=== PATIENT | male | born 1945 | race Caucasian/White ===

== ENCOUNTER → 2017-05-01 | Outpatient (REF) ==
[~2017-05-01] MED LIST: ACCUPRIL 1010 MG/TAB PO; ALDACTONE 25MG25 M1 PO; ALDACTONE25 MG PO; ALLERGY RELIEF10 M1 PO; ALLOPURINOL300 MG PO; ASPI325T6 PO; ASPIR-LOW81 MG PO; ASPIR-LOX AD325 MG PO; ASPIRIN 32325 MG/TA1 PO; ASPIRIN 32325 MG/TAB PO; BACTROBAN 22GM22 GM TP; BIAXIN FILMTAB500 MG PO; CAPOTEN12.5 MG PO; CARDI-OMEGA1000 MG PO; CARDURA XL4 MG; CARDURA XL4 MG PO; CLARITIN REDITA10 MG PO; CLOPIDOGREL; CORDARONE200 MG PO; DOXAZOSIN4 MG PO; EPA FISH OIL1000 MG PO; FLONASE NASAL S16 GM NS; FUROSEMIDE; GOOD SENSE ASP325 M1 PO; K-DUR 2020 MEQ PO; KLOR-CON M2020 MEQ PO; LASIX 40MG TABL40 MG PO; LASIX40 MG PO; LOPRESSOR 550 MG/TAB PO; LORATADINE10 MG PO; LOTRIMIN15 GM TP; MULTIPLE VITAMI1 CAP PO; MUPIROCIN2% TP; NAPROSYN375 MG PO; NITROSTAT0.4 MG SL; NITROSTAT0.4 MG/TAB SL; NO HOME MEDICATIONS; NORCO 325 MG-51 TAB PO; NORCO 325 MG-7.1 TA1 PO; PACERONE200 MG PO; PERCOCET 325 MG1 TA2 PO; PLAVIX 75MG TAB75 MG PO; POTASSIUM CH2 MEQ/ML PO; POTASSIUM CL 220 MEQ PO; SIMVISTATIN; TOPROL XL100 MG PO; TYLENOL PM 5001 CAP PO; TYLENOL PM EXTR1 TA1 PO; ULTRAM 50MG TAB50 MG PO; ZAROXOLYN5 MG PO; ZESTRIL2.5 MG PO; ZITHROMAX 250M250 MG PO; ZOCOR 20MG20 MG PO; ZYLOPRIM 300MG300 MG PO; ZYRTEC5 MG
[2017-05-01 16:15] LABS: CALCIUM 10.6 mg/dL (8.4-10.2); CREATININE, serum 1.13 mg/dL (0.66-1.25); POTASSIUM 3.7 mmol/L (3.4-5.0)
== END ==
LOC: EDBD 15:52 → ZLAB.STJ 15:52
PROVIDERS: Family Medicine
DX: Z01.89 Encounter for other specified special examinations (principal)

== ENCOUNTER → 2017-09-19 | Outpatient (CLI) | payer MEDICARE ==
[~2017-09-19] MED LIST changes: +ALDACTONE50 MG PO; +ALMACONE 360 M360 ML PO; +ASPIRIN 81M81 MG/TA2 PO; +CRANBERRY FRUI425 MG PO; +DEBROX OT; +DEMADEX10 MG PO; +FLOMAX 0.40.4 MG/CAP PO; +GLUCOPHAGE500 MG/TAB PO; +IMODIUM A-D2 MG PO; +K-TAB20 PO; +KRILL OIL 3001 EACH PO; +L-LYSINE500 M1 PO; +MIRALAX PA17 GM/Dose PO; +PHENERGAN25 MG RC; +PROBIOTIC ACID1.5 MG PO; +TYLENOL 325MG325 MG PO; +VITAMIN B122500 MCG PO; +VITAMIND3 5000 PO; +VITAMINE200 PO
== END ==
LOC: ZLAB.STJ 14:50
DX: E11.9 Type 2 diabetes mellitus without complications (principal)

== ENCOUNTER → 2017-10-06 | Outpatient (CLI) | payer MEDICARE ==
[2017-10-06 10:21] LABS: BASO % 0.3 % (0.0-2.0); EOS # 0.6 (0.0-0.7); EOS % 4.7 % (0-4.0); GRAN # 9.2 (1.4-6.5); GRAN % 74.2 % (42.2-75.2); HEMATOCRIT 46.5 % (42.0-52.0); HEMOGLOBIN 15.1 g/dl (13.5-18.0); LYMPH # 1.5 (1.2-3.4); LYMPH % 11.8 % (20.0-51.0); MEAN CELL VOLUME 92 fl (80.0-100.0); MEAN CORPUSCULAR HEMOGLOBIN 30 pg (27.0-31.0); MEAN CORPUSCULAR HGB CONC 33 g/dl (33.0-37.0); MEAN PLATELET VOLUME 11.5 fl (7.4-10.4); MONO # 1.1 (0.1-0.6); MONO % 8.7 % (1.7-9.3); PLATELET COUNT 155 K/mm3 (130-400); RED BLOOD COUNT 5.03 M/mm3 (4.20-5.60); REDCELL DISTRIBUTION WIDTH-CV 15.1 % (11.5-14.5)
[2017-10-06 10:42] LABS: ALBUMIN 4.4 gm/dL (3.5-5.0); BILIRUBIN,TOTAL 0.6 mg/dL (0.0-1.0); CALCIUM 10.9 mg/dL (8.4-10.2); CHOLESTEROL RISK RATIO 5.1; CREATININE, serum 1.09 mg/dL (0.66-1.25); POTASSIUM 4.7 mmol/L (3.4-5.0); TOTAL PROTEIN 7.9 gm/dL (6.4-8.2)
[2017-10-06 11:09] LABS: THYROID STIMULATING HORMONE 2.48 uIU/mL (0.465-4.680)
== END ==
LOC: ZLAB.STJ 10:02
PROVIDERS: Family Medicine
DX: I50.9 Heart failure, unspecified (principal); E11.9 Type 2 diabetes mellitus without complications

== ENCOUNTER 2017-10-21 12:16 | Emergency (ER) | payer MEDICARE ==
[~2017-10-21] VITALS: Ht 188 cm; Wt 143.2 kg
[2017-10-21 12:20] VITALS: BP 100/52; PULSE 77; TEMP 98.6
[2017-10-21] MEDS ORDERED: ULTRAM 50MG TAB50 MG PO (13:37)
== END 2017-10-21 13:50 | disposition home or self-care (01) ==
LOC: COL.ER 12:16
DX: S70.02XA Contusion of left hip, initial encounter (principal); I10 Essential (primary) hypertension; I25.2 Old myocardial infarction; I48.91 Unspecified atrial fibrillation; E11.9 Type 2 diabetes mellitus without complications; E66.9 Obesity, unspecified; E78.5 Hyperlipidemia, unspecified; M10.9 Gout, unspecified; Z79.84 Long term (current) use of oral hypoglycemic drugs; Z79.82 Long term (current) use of aspirin; W18.39XA Other fall on same level, initial encounter; Y92.129 Unspecified place in nursing home as the place of occurrence of the external cause

== ENCOUNTER → 2017-10-31 | Outpatient (REF) | LOC: ZLAB.STJ 14:25 | DX: N18.3 Chronic kidney disease, stage 3 (moderate) (principal); E11.9 Type 2 diabetes mellitus without complications ==

== ENCOUNTER → 2017-10-31 | Outpatient (CLI) | payer MEDICARE | LOC: ZCOL.LAB 14:20 | DX: Z01.89 Encounter for other specified special examinations (principal) ==

== ENCOUNTER → 2017-11-30 | Outpatient (CLI) | payer MEDICARE | LOC: ZLAB.STJ 09:22 | DX: M62.81 Muscle weakness (generalized) (principal) ==

== ENCOUNTER → 2018-04-03 | Outpatient (CLI) | payer MEDICARE | LOC: ZLAB.STJ 09:50 | DX: E11.9 Type 2 diabetes mellitus without complications (principal); I25.10 Atherosclerotic heart disease of native coronary artery without angina pectoris; M1A.00X0 Idiopathic chronic gout, unspecified site, without tophus (tophi) ==

== ENCOUNTER → 2018-04-06 | Outpatient (CLI) | payer MEDICARE ==
[2018-04-06 10:29] LABS: HEMATOCRIT 43.9 % (42.0-52.0); HEMOGLOBIN 14.4 g/dl (13.5-18.0); MEAN CELL VOLUME 90 fl (80.0-100.0); MEAN CORPUSCULAR HEMOGLOBIN 30 pg (27.0-31.0); MEAN CORPUSCULAR HGB CONC 33 g/dl (33.0-37.0); MEAN PLATELET VOLUME 12.6 fl (7.4-10.4); PLATELET COUNT 170 K/mm3 (130-400); RED BLOOD COUNT 4.86 M/mm3 (4.20-5.60); REDCELL DISTRIBUTION WIDTH-CV 14.8 % (11.5-14.5)
[2018-04-06 10:33] LABS: ALBUMIN 3.6 gm/dL (3.5-5.0); BILIRUBIN,TOTAL 0.4 mg/dL (0.0-1.0); CHOLESTEROL RISK RATIO 4.6; CREATININE, serum 1.01 mg/dL (0.66-1.25); TOTAL PROTEIN 6.5 gm/dL (6.4-8.2); URIC ACID 5.9 mg/dL (3.5-8.5)
[2018-04-06 10:39] LABS: POTASSIUM 13.4 mmol/L (3.4-5.0)
== END ==
LOC: ZLAB.STJ 09:50
PROVIDERS: Family Medicine
DX: Z01.89 Encounter for other specified special examinations (principal)

== ENCOUNTER → 2018-12-28 | Outpatient (CLI) | payer MEDICARE ==
[2018-12-28 09:57] LABS: ALBUMIN 3.8 gm/dL (3.5-5.0); BILIRUBIN,TOTAL 0.5 mg/dL (0.0-1.0); CALCIUM 10.5 mg/dL (8.4-10.2); CREATININE, serum 1.18 (0.66-1.25); POTASSIUM 4.3 mmol/L (3.4-5.0); TOTAL PROTEIN 7.4 gm/dL (6.4-8.2)
[2018-12-28 11:30] LABS: BASO # 0.1 (0.0-0.2); BASO % 0.5 % (0.0-2.0); EOS # 0.8 (0.0-0.7); EOS % 6.8 % (0-4.0); GRAN # 7.2 (1.4-6.5); GRAN % 65.5 % (42.2-75.2); HEMATOCRIT 45.8 % (42.0-52.0); HEMOGLOBIN 14.7 g/dl (13.5-18.0); LYMPH % 18.5 % (20.0-51.0); MEAN CELL VOLUME 91 fl (80.0-100.0); MEAN CORPUSCULAR HEMOGLOBIN 29 pg (27.0-31.0); MEAN CORPUSCULAR HGB CONC 32 g/dl (33.0-37.0); MEAN PLATELET VOLUME 12.3 fl (7.4-10.4); MONO # 0.9 (0.1-0.6); MONO % 8.2 % (1.7-9.3); PLATELET COUNT 197 K/mm3 (130-400); RED BLOOD COUNT 5.01 M/mm3 (4.20-5.60); REDCELL DISTRIBUTION WIDTH-CV 15.4 % (11.5-14.5)
[2018-12-28 11:47] LABS: PSA-TOTAL 0.43 ng/mL (0-4)
== END ==
LOC: ZLAB.STJ 09:16
PROVIDERS: Family Medicine
DX: I25.10 Atherosclerotic heart disease of native coronary artery without angina pectoris (principal); N40.1 Benign prostatic hyperplasia with lower urinary tract symptoms; I10 Essential (primary) hypertension
CPT/HCPCS: G0103

== ENCOUNTER → 2019-01-18 | Outpatient (CLI) | payer MEDICARE | LOC: COL.RAD 13:40 | DX: M16.12 Unilateral primary osteoarthritis, left hip (principal); W19.XXXA Unspecified fall, initial encounter ==

== ENCOUNTER → 2019-02-23 | Outpatient (CLI) | payer MEDICARE | LOC: ZLAB.STJ 13:55 | DX: E11.9 Type 2 diabetes mellitus without complications (principal); I25.10 Atherosclerotic heart disease of native coronary artery without angina pectoris; M62.81 Muscle weakness (generalized) ==

== ENCOUNTER → 2019-03-05 | Outpatient (CLI) | payer MEDICARE | LOC: ZLAB.STJ 09:09 | DX: M62.81 Muscle weakness (generalized) (principal) ==

== ENCOUNTER → 2019-03-07 | Outpatient (CLI) | payer MEDICARE | LOC: ZCOL.LAB 16:11 → ZLAB.STJ 16:11 | DX: E11.29 Type 2 diabetes mellitus with other diabetic kidney complication (principal) ==

== ENCOUNTER → 2019-04-16 | Outpatient (CLI) | payer MEDICARE | LOC: ZLAB.STJ 15:14 | DX: M1A.00X0 Idiopathic chronic gout, unspecified site, without tophus (tophi) (principal) ==

== ENCOUNTER → 2019-08-09 | Outpatient (CLI) | payer MEDICARE ==
[~2019-08-09] MED LIST changes: +B-121000 MCG PO; +DESYREL 50MG50 MG PO; +QUALITY CHOICE80 MG PO; -VITAMIN B122500 MCG PO; +WELLBUTRIN XL150 MG PO
[2019-08-09 17:35] LABS: COLLECTION METHOD CLEAN CATCH
[2019-08-09 18:07] LABS: SQUAMOUS EPITHELIAL 0-2 /hpf; URINE BACTERIA None Seen /hpf
[2019-08-09 18:22] LABS: PH 5 (5-8); URINE APPEARANCE Clear; URINE BILIRUBIN Negative (NEGATIVE); URINE BLOOD 1+ (NEGATIVE); URINE COLOR Yellow; URINE GLUCOSE Negative (NEGATIVE); URINE KETONE Negative (NEGATIVE); URINE LEUKOCYTE ESTERASE Trace (NEGATIVE); URINE NITRATE Negative (NEGATIVE); URINE PROTEIN(semi-quant) Negative (NEGATIVE); URINE UROBILINOGEN Negative (NEGATIVE)
== END ==
LOC: ZCOL.LAB 15:27 → ZLAB.STJ 15:27
PROVIDERS: Family Medicine
DX: N39.0 Urinary tract infection, site not specified (principal)

== ENCOUNTER 2019-08-14 01:05 | Inpatient (IN) | payer MEDICARE ==
[~2019-08-14] VITALS: Ht 182.9 cm; Wt 157.0 kg
[~2019-08-14 01:05] MED LIST changes: -DESYREL 50MG50 MG PO; -QUALITY CHOICE80 MG PO; -WELLBUTRIN XL150 MG PO
[2019-08-14 01:27] LABS: BASO % 0.2 % (0.0-2.0); EOS # 0.2 (0.0-0.7); EOS % 1.2 % (0-4.0); GRAN # 13.8 (1.4-6.5); HEMATOCRIT 40.5 % (42.0-52.0); HEMOGLOBIN 13.1 g/dl (13.5-18.0); LYMPH # 1.2 (1.2-3.4); LYMPH % 7.5 % (20.0-51.0); MEAN CELL VOLUME 93 fl (80.0-100.0); MEAN CORPUSCULAR HEMOGLOBIN 30 pg (27.0-31.0); MEAN CORPUSCULAR HGB CONC 32 g/dl (33.0-37.0); MEAN PLATELET VOLUME 10.6 fl (7.4-10.4); MONO # 1.1 (0.1-0.6); MONO % 6.6 % (1.7-9.3); PLATELET COUNT 223 K/mm3 (130-400); RED BLOOD COUNT 4.36 M/mm3 (4.20-5.60); REDCELL DISTRIBUTION WIDTH-CV 14.7 % (11.5-14.5)
[2019-08-14 01:42] LABS: ALANINE AMINOTRANSFERASE 20 U/L (21-72); ALBUMIN 3.6 gm/dL (3.5-5.0); ALKALINE PHOSPHATASE 81 U/L (50-136); ANION GAP 10 mmol/L (7-16); AST,SGOT 16 U/L (15-37); BILIRUBIN,TOTAL 0.3 mg/dL (0.0-1.0); BLOOD UREA NITROGEN 25 mg/dL (9-20); C-REACTIVE PROTEIN 5.7 mg/dL (0.0-0.9); CALCIUM 10.7 mg/dL (8.4-10.2); CARBON DIOXIDE 27 mmol/L (22-30); CHLORIDE 99 mmol/L (98-107); CREATININE, serum 1.43 (0.66-1.25); GLUCOSE 212 mg/dL (74-106); LIPASE 68 U/L (23-300); POTASSIUM 4.4 mmol/L (3.4-5.0); SODIUM 136 mmol/L (137-145); TOTAL PROTEIN 7.2 gm/dL (6.4-8.2)
[2019-08-14 01:52] LABS: TROPONIN-I < 0.012 ng/mL (0.000-0.035)
[2019-08-14 02:26] LABS: COLLECTION METHOD CATHETER
[2019-08-14 02:34] LABS: PH 6 (5-8); SQUAMOUS EPITHELIAL 0-2 /hpf; URINE APPEARANCE Cloudy; URINE BACTERIA Rare /hpf; URINE BILIRUBIN Negative (NEGATIVE); URINE BLOOD 2+ (NEGATIVE); URINE COLOR Yellow; URINE GLUCOSE Negative (NEGATIVE); URINE KETONE Negative (NEGATIVE); URINE LEUKOCYTE ESTERASE 3+ (NEGATIVE); URINE NITRATE Negative (NEGATIVE); URINE PROTEIN(semi-quant) 1+ (NEGATIVE); URINE RBC 20-50 /hpf; URINE UROBILINOGEN Negative (NEGATIVE)
--- NOTE | 2019-08-14 04:00 | NUR ---
Pt arrived to room 312, transferred per stretcher by ED staff. Pt awake, alert, oriented to person/place, cooperative c cares. Pt denies pain or other c/o at this time. INT patent. Pt oriented to room, unit policies et current POC. Questions invited et answered, pt verbalizes understanding. No needs at this time. Call light in reach, will continue c admit process.
[2019-08-14 04:01] VITALS: BP 131/51; PULSE 80; TEMP 98.6
[2019-08-14] MEDS ORDERED: QUALITY CHOICE80 MG PO (05:19)
[2019-08-14] MEDS ORDERED: WELLBUTRIN XL150 MG PO (05:20)
[2019-08-14] MEDS ORDERED: DESYREL 50MG50 MG PO (05:23)
[2019-08-14 11:36] VITALS: BP 139/52; PULSE 94; TEMP 99
--- NOTE | 2019-08-14 15:01 | NUR ---
Potato Peeler attended clinical rounds with the team. PT/OT/Speech to be ordered. SW will continue to follow.
--- NOTE | 2019-08-14 15:02 | NUR ---
Zoo Caretaker met with patient to complete initial intake and discuss discharge planning. Patient is a limited historian, however did state that he lives at [facility]. SW contacted Reymundo at [facility] and left a message. SW contacted patient [facility]-, Miguel (ph#[phone]) who confirmed patient lives at [facility]. Miguel could not remember name of patient primary care physician. ADAM reviewed patient choice form with Miguel and obtained verbal consent over the phone. ADAM placed form in patient chart. ADAM faxed referral to [facility]. SW to continue to follow.
[2019-08-14 16:12] VITALS: BP 113/92; PULSE 86; TEMP 98.8
--- NOTE | 2019-08-14 18:31 | NUR ---
PT HAD UNEVENTFUL DAY. HAS BEEN ALERT AND ORIENTED X2. HAS BEEN RESTLESS, ABLE TO STAND AND WALK TO BATHROOM THEN LATER WILL SIT UP AND REFUSE TO STAND AND LAYS BACK DOWN AND DOES THIS OVER AN OVER. REFUSES TO USE URINAL OR COMMODE.
[2019-08-14 19:22] VITALS: BP 134/49; PULSE 87; TEMP 98.9
[2019-08-14 23:58] VITALS: BP 148/51; PULSE 98
[2019-08-15] VITALS (8 sets, daily range): BP systolic 142–164; BP diastolic 56–74; PULSE 81–97; TEMP 97.9–98.7
--- NOTE | 2019-08-15 08:30 | NUR ---
Assessment complete. Pt sleeps, responds to tactile stimuli, does not awaken. Physical assessment unremarkable. IVF's infusing per orders, no s/s of complications. Call light in reach. Alarm in place and on.
--- NOTE | 2019-08-15 11:09 | NUR ---
Pt briefly up to void in the urinal with assist, slight hesitation to start the stream then voids without c/o pain during void. Pt quickly back to sleep. Not awake enough to take medications at this time.
[2019-08-15 14:30] LABS: BASO % 0.3 % (0.0-2.0); EOS # 0.2 (0.0-0.7); EOS % 1.6 % (0-4.0); GRAN # 7.2 (1.4-6.5); GRAN % 71.8 % (42.2-75.2); HEMOGLOBIN 13.6 g/dl (13.5-18.0); LYMPH # 1.4 (1.2-3.4); LYMPH % 13.7 % (20.0-51.0); MEAN CELL VOLUME 94 fl (80.0-100.0); MEAN CORPUSCULAR HEMOGLOBIN 30 pg (27.0-31.0); MEAN CORPUSCULAR HGB CONC 32 g/dl (33.0-37.0); MEAN PLATELET VOLUME 10.4 fl (7.4-10.4); MONO # 1.2 (0.1-0.6); MONO % 12.3 % (1.7-9.3); PLATELET COUNT 189 K/mm3 (130-400); RED BLOOD COUNT 4.59 M/mm3 (4.20-5.60); REDCELL DISTRIBUTION WIDTH-CV 14.8 % (11.5-14.5)
--- NOTE | 2019-08-15 14:35 | NUR ---
SW faxed updates to [facility]. library services assistant will continue to follow.
[2019-08-15 14:47] LABS: CALCIUM 10.4 mg/dL (8.4-10.2); CREATININE, serum 1.26 (0.66-1.25); POTASSIUM 3.9 mmol/L (3.4-5.0)
--- NOTE | 2019-08-15 15:46 | NUR ---
Spoke with DPOA-HC Miguel Gilbert @ [phone] for palliative care consult as pt is sleeping and no family is in the room. 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 His weight has gotten to over 400# before but when he was on a low carb diet with vegetables for snack, he was able to get his weight down to 278# and it also improved his mental status. Family requests that he be on a low carb diet, which he is and that his snacks be vegetables. They also requested that he be put on probiotics while on antibiotics. The three brothers that are DPOA-HC decisions will talk among themselves and will try to talk with Aayush about code status. They do recognize that his size will make a code's success difficult and will let us know what their decision on this is. I did notify Subha BARBA of this conversation and what was discussed. See palliative care consult.
--- NOTE | 2019-08-15 18:20 | NUR ---
Pt sitting up in bed eating supper, reports feeling "pretty good after a long nap." Pt has been very drowsy most of the shift until now. No further needs reported. Call light in reach.
[2019-08-16 03:39] VITALS: BP 162/69; PULSE 105; TEMP 98.4
--- NOTE | 2019-08-16 04:12 | NUR ---
PATIENT REQUESTING TO GO TO THE BATHROOM EVERY 5-10 MINUETS REPORTING THAT HE FEEL LIKE HE HAS TO GO. SMALL AMOUNT OF URINATION EACH TIME. BLADDER SCANNED AFTER UP TO BEDSIDE COMMODE WITH 600MML RESIDUAL. CALL TO ORDERS RECEIVED FOR EID CATHETER INSERT AND PYRIDIUM X 1 DOSE NOW. EID CATHETER INSERT IN STERILE FASHION WITH 550ML OF DARK YELLOW URINE OBTAINED ON FIRST ATTEMPT. PATIENT TOLERATED PROCEDURE WELL. SECUREMENT DEVICE USED. TUBING AND BAG TO DEPENDENT DRAINAGE OFF FLOOR AND BELOW BLADDER.
[2019-08-16 05:27] LABS: BASO % 0.1 % (0.0-2.0); EOS # 0.2 (0.0-0.7); EOS % 2.3 % (0-4.0); GRAN # 6.7 (1.4-6.5); GRAN % 74.9 % (42.2-75.2); HEMATOCRIT 43.3 % (42.0-52.0); HEMOGLOBIN 14.1 g/dl (13.5-18.0); LYMPH # 1.1 (1.2-3.4); LYMPH % 12.6 % (20.0-51.0); MEAN CELL VOLUME 91 fl (80.0-100.0); MEAN CORPUSCULAR HEMOGLOBIN 30 pg (27.0-31.0); MEAN CORPUSCULAR HGB CONC 33 g/dl (33.0-37.0); MEAN PLATELET VOLUME 10.1 fl (7.4-10.4); MONO # 0.8 (0.1-0.6); MONO % 9.5 % (1.7-9.3); PLATELET COUNT 176 K/mm3 (130-400); RED BLOOD COUNT 4.76 M/mm3 (4.20-5.60); REDCELL DISTRIBUTION WIDTH-CV 14.6 % (11.5-14.5)
[2019-08-16 05:37] LABS: CALCIUM 10.1 mg/dL (8.4-10.2); CREATININE, serum 1.29 (0.66-1.25)
--- NOTE | 2019-08-16 08:30 | NUR ---
Assessment complete. Pt sitting up in bed, ready for breakfast, alert and oriented to person. Pt denies pain at this time. Audible expiratory wheeze noted. Saline lock IV to right forearm without s/s of complications. Gilmore to DD without kinks, clear, orange urine. No further needs reported. Call light in reach. Bed alarm pad in place.
[2019-08-16 10:00] VITALS: BP 146/74; PULSE 91; TEMP 98.2
[2019-08-16 13:30] VITALS: BP 144/65; PULSE 98; TEMP 98.1
--- NOTE | 2019-08-16 15:02 | NUR ---
Broom Builder spoke with Leslie at [facility] and faxed updates. SW to continue to follow.
[2019-08-16 17:02] VITALS: BP 154/68; PULSE 92; TEMP 98.2
--- NOTE | 2019-08-16 18:50 | NUR ---
Report with MILLICENT Coker. Pt has voided x 1 s/p removal of Gilmore catheter.
[2019-08-16 19:19] VITALS: BP 130/66; PULSE 96; TEMP 98.4
[2019-08-16 22:37] VITALS: BP 136/74; PULSE 80; TEMP 98.3
[2019-08-17 02:45] VITALS: BP 121/57; PULSE 77; TEMP 98
[2019-08-17 03:45] VITALS: BP 120/67; PULSE 78
[2019-08-17 07:25] LABS: BASO % 0.2 % (0.0-2.0); EOS # 0.4 (0.0-0.7); EOS % 4.5 % (0-4.0); GRAN # 6.7 (1.4-6.5); GRAN % 70.8 % (42.2-75.2); HEMATOCRIT 41.4 % (42.0-52.0); HEMOGLOBIN 13.2 g/dl (13.5-18.0); LYMPH # 1.5 (1.2-3.4); LYMPH % 16.1 % (20.0-51.0); MEAN CELL VOLUME 93 fl (80.0-100.0); MEAN CORPUSCULAR HEMOGLOBIN 30 pg (27.0-31.0); MEAN CORPUSCULAR HGB CONC 32 g/dl (33.0-37.0); MEAN PLATELET VOLUME 10.8 fl (7.4-10.4); MONO # 0.8 (0.1-0.6); PLATELET COUNT 239 K/mm3 (130-400); RED BLOOD COUNT 4.46 M/mm3 (4.20-5.60); REDCELL DISTRIBUTION WIDTH-CV 14.6 % (11.5-14.5)
[2019-08-17 07:58] LABS: CALCIUM 10.6 mg/dL (8.4-10.2); CREATININE, serum 1.19 (0.66-1.25); POTASSIUM 4.1 mmol/L (3.4-5.0)
--- NOTE | 2019-08-17 07:58 | NUR ---
Patient is awake and alert in bed. Is plesant, alert and oriented to self. Does state he would like to shower so he can get dressed and "hit the road." Was heard earlier to be yelling out wanting supper. His respirations are even and nonlabored. Call light and personal items are within reach.
[2019-08-17 08:40] VITALS: BP 144/66; PULSE 83; TEMP 98.1
[2019-08-17] MEDS ORDERED: CEPHALEXIN500 M1 PO (09:33)
--- NOTE | 2019-08-17 13:47 | NUR ---
Bank President was notified patient ready to discharge today. ADAM coordinated with patient RN, Loren and Reymundo at [facility] to set up transportation for 1:00pm. ADAM faxed discharge orders to [facility]. ADAM contacted patient's DPOA-HC Miguel to notify of discharge today to [facility]. Miguel is in agreeance. No additional concerns at this time.
--- NOTE | 2019-08-17 17:06 | NUR ---
Patient discharged home to [facility] at 1315. residential staff here to transport patient. He was minimally assisted with dressing and standby assist to wheelchair. Personal belongings sent with patient along with discharge packet.
[2019-08-17 23:51] LABS: PTH,INTACT 128.6 pg/mL (6.6-88.9)
== END 2019-08-17 13:15 | DRG 872 ==
LOC: COL.ER 01:05 → MEDICAL 02:48
PROVIDERS: Emergency Medicine; Nurse Practitioner Family; Physician Assistant; ADMIT Student in an Organized Health Care Education/Training Program
DX: A41.9 Sepsis, unspecified organism (principal); N39.0 Urinary tract infection, site not specified; I25.10 Atherosclerotic heart disease of native coronary artery without angina pectoris; I48.91 Unspecified atrial fibrillation; J44.9 Chronic obstructive pulmonary disease, unspecified; N40.0 Benign prostatic hyperplasia without lower urinary tract symptoms; F03.90 Unspecified dementia, unspecified severity, without behavioral disturbance, psychotic disturbance, mood disturbance, and anxiety; M10.9 Gout, unspecified; E11.65 Type 2 diabetes mellitus with hyperglycemia; N28.1 Cyst of kidney, acquired; E86.0 Dehydration; I25.2 Old myocardial infarction; Z90.89 Acquired absence of other organs; Z87.01 Personal history of pneumonia (recurrent); Z79.84 Long term (current) use of oral hypoglycemic drugs; Z79.82 Long term (current) use of aspirin; Z87.891 Personal history of nicotine dependence; Z68.38 Body mass index [BMI] 38.0-38.9, adult
CPT/HCPCS: 99222-AI; 99231-AI; 99232-AI; 99239; A4216; J0696; J1644; J1815; J7030

== ENCOUNTER → 2019-08-26 | Outpatient (CLI) | payer MEDICARE ==
[~2019-08-26] MED LIST changes: +CEPHALEXIN500 M1 PO; +DESYREL 50MG50 MG PO; +QUALITY CHOICE80 MG PO; +WELLBUTRIN XL150 MG PO
[2019-08-26 11:17] LABS: COLLECTION METHOD CLEAN CATCH
[2019-08-26 11:32] LABS: PH 6 (5-8); SQUAMOUS EPITHELIAL 0-2 /hpf; URINE APPEARANCE Clear; URINE BACTERIA None Seen /hpf; URINE BILIRUBIN Negative (NEGATIVE); URINE BLOOD Negative (NEGATIVE); URINE COLOR Straw; URINE GLUCOSE Negative (NEGATIVE); URINE KETONE Negative (NEGATIVE); URINE LEUKOCYTE ESTERASE Negative (NEGATIVE); URINE NITRATE Negative (NEGATIVE); URINE PROTEIN(semi-quant) Negative (NEGATIVE); URINE RBC 0-2 /hpf; URINE UROBILINOGEN Negative (NEGATIVE)
== END ==
LOC: ZCOL.LAB 10:40
PROVIDERS: Family Medicine
DX: N39.0 Urinary tract infection, site not specified (principal)

== ENCOUNTER → 2019-09-21 | Outpatient (CLI) | payer MEDICARE ==
[2019-09-21 17:25] LABS: COLLECTION METHOD CLEAN CATCH
[2019-09-21 17:51] LABS: PH 5 (5-8); SQUAMOUS EPITHELIAL 0-2 /hpf; URINE APPEARANCE Clear; URINE BACTERIA Rare /hpf; URINE BILIRUBIN Negative (NEGATIVE); URINE BLOOD Negative (NEGATIVE); URINE COLOR Straw; URINE GLUCOSE Negative (NEGATIVE); URINE KETONE Negative (NEGATIVE); URINE LEUKOCYTE ESTERASE Negative (NEGATIVE); URINE NITRATE Negative (NEGATIVE); URINE PROTEIN(semi-quant) Negative (NEGATIVE); URINE RBC None Seen /hpf; URINE UROBILINOGEN Negative (NEGATIVE); URINE WBC 0-2 /hpf
== END ==
LOC: ZCOL.LAB 15:15
PROVIDERS: Family Medicine
DX: N39.0 Urinary tract infection, site not specified (principal)

== ENCOUNTER → 2019-12-06 | Outpatient (CLI) | payer MEDICARE ==
[2019-12-06 11:29] LABS: CALCIUM 10.2 mg/dL (8.4-10.2); CREATININE, serum 1.1 (0.66-1.25); POTASSIUM 3.9 mmol/L (3.4-5.0)
== END ==
LOC: ZLAB.STJ 08:54
PROVIDERS: Family Medicine
DX: Z01.89 Encounter for other specified special examinations (principal)

== ENCOUNTER 2019-12-15 16:38 | Emergency (ER) | payer MEDICARE ==
[~2019-12-15] VITALS: Ht 185.4 cm; Wt 170.0 kg
[2019-12-15 18:48] VITALS: PULSE 78
== END 2019-12-15 18:48 | disposition home or self-care (01) ==
LOC: COL.ER 16:38
DX: S70.02XA Contusion of left hip, initial encounter (principal); I10 Essential (primary) hypertension; I48.91 Unspecified atrial fibrillation; I25.10 Atherosclerotic heart disease of native coronary artery without angina pectoris; E11.9 Type 2 diabetes mellitus without complications; W06.XXXA Fall from bed, initial encounter
CPT/HCPCS: J2405; J3010

== ENCOUNTER → 2020-01-04 | Outpatient (CLI) | payer MEDICARE ==
[2020-01-04 12:29] LABS: COLLECTION METHOD CLEAN CATCH
[2020-01-04 12:38] LABS: PH 7 (5-8); SQUAMOUS EPITHELIAL 0-2 /hpf; URINE APPEARANCE Clear; URINE BACTERIA Rare /hpf; URINE BILIRUBIN Negative (NEGATIVE); URINE BLOOD Negative (NEGATIVE); URINE COLOR Straw; URINE GLUCOSE Negative (NEGATIVE); URINE KETONE Negative (NEGATIVE); URINE LEUKOCYTE ESTERASE 1+ (NEGATIVE); URINE NITRATE Negative (NEGATIVE); URINE PROTEIN(semi-quant) Negative (NEGATIVE); URINE RBC 0-2 /hpf; URINE UROBILINOGEN Negative (NEGATIVE)
== END ==
LOC: ZLAB.STJ 10:42
PROVIDERS: Family Medicine
DX: N39.0 Urinary tract infection, site not specified (principal)

== ENCOUNTER 2020-05-06 03:51 | Observation (INO) | payer MEDICARE ==
[2020-05-06] VITALS (11 sets, daily range): BP systolic 103–165; BP diastolic 50–67; PULSE 66–90; TEMP 97.2–98.6
[~2020-05-06] VITALS: Ht 185.4 cm; Wt 167.3 kg
[2020-05-06 04:12] LABS: BASO % 0.3 % (0.0-2.0); EOS # 0.6 (0.0-0.7); EOS % 6.1 % (0-4.0); GRAN # 6.5 (1.4-6.5); HEMOGLOBIN 15.2 g/dl (13.5-18.0); LYMPH # 2.4 (1.2-3.4); LYMPH % 22.9 % (20.0-51.0); MEAN CELL VOLUME 89 fl (80.0-100.0); MEAN CORPUSCULAR HEMOGLOBIN 28 pg (27.0-31.0); MEAN CORPUSCULAR HGB CONC 32 g/dl (33.0-37.0); MEAN PLATELET VOLUME 10.3 fl (7.4-10.4); MONO # 0.9 (0.1-0.6); MONO % 8.4 % (1.7-9.3); PLATELET COUNT 175 K/mm3 (130-400); RED BLOOD COUNT 5.37 M/mm3 (4.20-5.60); REDCELL DISTRIBUTION WIDTH-CV 15.4 % (11.5-14.5)
[2020-05-06 04:18] LABS: INR 1.1 (0.8-3.0); PROTHROMBIN TIME 12.3 SECONDS (9.7-12.8)
[2020-05-06 04:22] LABS: ALANINE AMINOTRANSFERASE 23 U/L (4-49); ALKALINE PHOSPHATASE 102 U/L (50-136); ANION GAP 8 mmol/L (7-16); AST,SGOT 21 U/L (15-37); BILIRUBIN,TOTAL 0.6 mg/dL (0.0-1.0); BLOOD UREA NITROGEN 17 mg/dL (9-20); CALCIUM 10.6 mg/dL (8.4-10.2); CARBON DIOXIDE 28 mmol/L (22-30); CHLORIDE 102 mmol/L (98-107); CREATININE, serum 0.95 (0.66-1.25); GLUCOSE 134 mg/dL (74-106); LIPASE 206 U/L (23-300); POTASSIUM 4.2 mmol/L (3.4-5.0); SODIUM 138 mmol/L (137-145); TOTAL PROTEIN 7.7 gm/dL (6.4-8.2)
[2020-05-06] MEDS ORDERED: ULTRAM 50MG TAB50 MG PO (04:31)
[2020-05-06] MEDS ORDERED: SENNA-LAX8.6 MG PO (04:32)
[2020-05-06 04:45] LABS: TROPONIN-I < 0.012 ng/mL (0.000-0.035)
[2020-05-06] MEDS ORDERED: NYSTATIN POWDER30 GM TOP (06:08)
[2020-05-06] MEDS ORDERED: [UNRECOGNIZED DRUG - OTHER] PO (06:08)
--- NOTE | 2020-05-06 06:34 | NUR ---
Pt received from [facility] around 604, med rec and allergy review are completed. Pt seems confused, 3+ bilateral lower edema, pt complaining of chest pain 4/10, pt states that it's better than what he had earlier morning. Helped to go to restroom and settled back to bed, call light on reach. Handover would be given to day shift nurse to complete further admission procedure. No further needs at this time.
[2020-05-06 07:22] LABS: CHOLESTEROL 192 mg/dL (120-200); HDL CHOLESTEROL 38 mg/dL; LDL CHOLESTEROL 123 mg/dL; MAGNESIUM 1.5 mg/dL (1.6-2.3); TRIGLYCERIDE 155 mg/dL
[2020-05-06 07:32] LABS: TROPONIN-I 3 HR POST INITIAL < 0.012 ng/mL (0.000-0.034)
--- NOTE | 2020-05-06 08:00 | NUR ---
PATIENT IS RESTING IN BED, HAS BEEN YELLING OUT ABOUT HAVING BREAKFAST MULTIPLE TIMES. DID ATTEMPT TO EXPLAIN TO PATIENT THAT HE COULD NOT EAT UNTIL HE HAD A HEART TEST DONE, HE WANTED TO KNOW WHEN AND SEE THE DOCTOR BECAUSE HE WAS HUNGRY. HE CONTINUES TO YELL OUT FOR FOOD.
--- NOTE | 2020-05-06 09:41 | NUR ---
Initial visit attempt; Nurse informed Monument Setter that patient was nearly deaf. Monument Setter left card for her to give to patient and will return if patient would like prayer.
--- NOTE | 2020-05-06 15:06 | NUR ---
The patient has a history of dementia. The patient's DPOA-HC is in EMR. It designates Miguel Olson (ph#[phone]). The first alternate is Laz Olson (ph#[phone]). The second alternate is Horace Olson (ph#[phone]). ADAM attempted to contact Miguel. ADAM left him a voicemail. ADAM then contacted Laz to complete intake. The patient resides at [facility]. The patient's PCP is Dr. Cain Joyner. Laz reports that the patient is his, Horace's, and Miguel's [id number]. Laz reports that the plan is for the patient to return back to [facility] upon discharge. ADAM contacted and faxed updates to Reymundo at [facility]. Reymundo reports that they would require a COVID test. ADAM notified the PA. ADAM to continue to follow.
--- NOTE | 2020-05-06 19:40 | NUR ---
PATIENT HAS NOT WORN TELEMETRY UNIT MOST OF THE DAY. HE SAYS IT PULLS HIS CHEST HAIR OUT. DID TRY TO EXPLAIN TO PATIENT THE PURPOSE AND HE SAID HE DIDNT CARE. DID NOTIFY DR. MCARTHUR OF THIS AND SHE SAID TO KEEP IT IN THE ROOM AND CONTINUE TO TRY. WHEN HE SEES THE BOX HE IMMEDIATELY SAYS "NO." HE ALSO PULLED IV OUT OF LEFT AC, THIS WAS REPLACED.
--- NOTE | 2020-05-06 22:13 | NUR ---
Pt assessment completed and documented. Pt resting in bed watching television. Pt alert and oriented x3. IV to right hand CDI. Denies pain. Pt on telemetry. Pt denies any other needs at this time. Call light within reach. Will continue to monitor
[2020-05-07] VITALS (11 sets, daily range): BP systolic 119–153; BP diastolic 57–77; PULSE 60–74; TEMP 96.9–98
--- NOTE | 2020-05-07 05:27 | NUR ---
Pt had uneventful shift. Pt states he was able to sleep until about 0330. Pt has been awake since then watching tv. IVF infusing per orders to right hand IV. Telemetry on throughout the night. Pt states he is "eager to get out of here so he can see his ". Pt denies any other needs at this time. Bed alarm on. Call light within reach. Will continue to monitor.
[2020-05-07 06:48] LABS: INR 1.1 (0.8-3.0); PROTHROMBIN TIME 12.1 SECONDS (9.7-12.8)
[2020-05-07 06:50] LABS: PARTIAL THROMBOPLASTIN TIME 35.3 SECONDS (26.0-37.0)
[2020-05-07 06:51] LABS: BASO % 0.2 % (0.0-2.0); EOS # 0.6 (0.0-0.7); EOS % 7.2 % (0-4.0); GRAN # 5.2 (1.4-6.5); HEMATOCRIT 43.5 % (42.0-52.0); HEMOGLOBIN 13.8 g/dl (13.5-18.0); LYMPH # 1.7 (1.2-3.4); LYMPH % 20.6 % (20.0-51.0); MEAN CELL VOLUME 90 fl (80.0-100.0); MEAN CORPUSCULAR HEMOGLOBIN 29 pg (27.0-31.0); MEAN CORPUSCULAR HGB CONC 32 g/dl (33.0-37.0); MEAN PLATELET VOLUME 11.1 fl (7.4-10.4); MONO # 0.7 (0.1-0.6); MONO % 8.8 % (1.7-9.3); PLATELET COUNT 163 K/mm3 (130-400); RED BLOOD COUNT 4.83 M/mm3 (4.20-5.60); REDCELL DISTRIBUTION WIDTH-CV 15.4 % (11.5-14.5)
[2020-05-07 06:52] LABS: CALCIUM 9.6 mg/dL (8.4-10.2); CREATININE, serum 1.01 (0.66-1.25); POTASSIUM 3.8 mmol/L (3.4-5.0)
--- NOTE | 2020-05-07 06:52 | NUR ---
Report given to MILLICENT Pimentel
--- NOTE | 2020-05-07 11:41 | NUR ---
SEE KALI FOR ALL MEDICATION ADMINISTRATION TIMES AND INTRA AND POST SEDATION ASSESSMENTS.ETCO2 NOT READING A NUMBER PATIENT IS MOUTH BREATHING
--- NOTE | 2020-05-07 12:05 | NUR ---
PATIENT IS CURRENTLY DOWN AT HEART CATH PROCEDURE.
[2020-05-07] MEDS ORDERED: LIPITOR 40MG TA40 MG PO (15:00)
--- NOTE | 2020-05-07 16:38 | NUR ---
Emt Dispatcher collaborated with Hospitalist and patient ready to be discharged. Patient had rapid swab that came back negative. ADAM collaborated with Reymundo at [facility] and set transport time for 1700. ADAM faxed discharge orders and medications. ADAM notified patient and patient's DPOA-Laz of transport time. No additional needs at this time.
[2020-05-07] MEDS ORDERED: ULTRAM 50MG TAB50 MG PO (16:39)
--- NOTE | 2020-05-07 16:51 | NUR ---
PATIENT RETURNED FROM PROCEDURE, SALOMÓN FROM [facility] DID NOTIFY ME THAT HE WAS IN ROOM. PUNCTURE SITE IS INTACT, NO BLEEDING NOTED. VS TO CONTINUOUS MONITORING 15 MIN. PATIENT IS RESTING WITH EYES CLOSED.
--- NOTE | 2020-05-07 17:56 | NUR ---
WHEN PATIENT WOKE FROM [facility] AFTER CATH, HE REQUESTED FOOD, WAS PROVIDED WITH A SANDWICH BOX AND A LUNCH TRAY. AFTER EATING WAS SWABBED FOR COVID FOR DISCHARGE TO RETURN TO [facility]. RAPID INHOUSE TEST DONE, WAS APPROVED BY RECOVERY OPERATOR HELPER. DISCHARGED AT 1730, FACILITY TRANSPORTATION TOOK PATIENT HOME. REPORT CALLED TO ACCEPTING NURSE.
== END 2020-05-07 17:30 ==
LOC: COL.ER 03:51 → MEDICAL 05:08
PROVIDERS: Emergency Medicine; Physician Assistant; ADMIT Student in an Organized Health Care Education/Training Program
DX: I25.10 Atherosclerotic heart disease of native coronary artery without angina pectoris (principal); R94.39 Abnormal result of other cardiovascular function study; E83.42 Hypomagnesemia; E78.5 Hyperlipidemia, unspecified; I48.91 Unspecified atrial fibrillation; I13.0 Hypertensive heart and chronic kidney disease with heart failure and stage 1 through stage 4 chronic kidney disease, or unspecified chronic kidney disease; I50.9 Heart failure, unspecified; I73.9 Peripheral vascular disease, unspecified; E66.01 Morbid (severe) obesity due to excess calories; E11.22 Type 2 diabetes mellitus with diabetic chronic kidney disease; N18.9 Chronic kidney disease, unspecified; N40.0 Benign prostatic hyperplasia without lower urinary tract symptoms; M10.9 Gout, unspecified; E83.52 Hypercalcemia; Z79.82 Long term (current) use of aspirin; I25.2 Old myocardial infarction; Z95.5 Presence of coronary angioplasty implant and graft; Z87.440 Personal history of urinary (tract) infections; E78.00 Pure hypercholesterolemia, unspecified; Z79.84 Long term (current) use of oral hypoglycemic drugs; Z87.891 Personal history of nicotine dependence
CPT/HCPCS: 99222-AI; 99233-AI; 99239; A9500; C1769; G0378; J1644; J2250; J2785; J3010; J3475; J7030

== ENCOUNTER → 2020-05-23 | Outpatient (CLI) | payer MEDICARE ==
[~2020-05-23] MED LIST changes: +LIPITOR 40MG TA40 MG PO; +NYSTATIN POWDER30 GM TOP; +SENNA-LAX8.6 MG PO; +[UNRECOGNIZED DRUG - OTHER] PO
== END ==
LOC: ZLAB.STJ 10:07
DX: E11.9 Type 2 diabetes mellitus without complications (principal)

== ENCOUNTER → 2020-06-19 | Outpatient (CLI) | payer MEDICARE ==
[2020-06-19 17:17] LABS: ALBUMIN 4.1 gm/dL (3.5-5.0); BILIRUBIN,TOTAL 0.4 mg/dL (0.0-1.0); CALCIUM 10.3 mg/dL (8.4-10.2); CREATININE, serum 1.15 (0.66-1.25); POTASSIUM 3.7 mmol/L (3.4-5.0); TOTAL PROTEIN 7.6 gm/dL (6.4-8.2); URIC ACID 5.8 mg/dL (3.5-8.5)
== END ==
LOC: ZLAB.STJ 16:10
PROVIDERS: Internal Medicine
DX: E11.9 Type 2 diabetes mellitus without complications (principal); E78.5 Hyperlipidemia, unspecified; E21.5 Disorder of parathyroid gland, unspecified; M10.9 Gout, unspecified

== ENCOUNTER 2020-10-11 22:40 | Emergency (ER) | payer MEDICARE ==
[~2020-10-11] VITALS: Ht 185.4 cm; Wt 145.5 kg
[2020-10-11 22:42] VITALS: TEMP 98.4
[2020-10-11 23:31] LABS: BASO % 0.4 % (0.0-2.0); EOS # 0.7 (0.0-0.7); EOS % 6.1 % (0-4.0); GRAN # 7.5 (1.4-6.5); GRAN % 67.5 % (42.2-75.2); HEMATOCRIT 43.8 % (42.0-52.0); HEMOGLOBIN 13.7 g/dl (13.5-18.0); LYMPH # 1.9 (1.2-3.4); LYMPH % 17.4 % (20.0-51.0); MEAN CELL VOLUME 89 fl (80.0-100.0); MEAN CORPUSCULAR HEMOGLOBIN 28 pg (27.0-31.0); MEAN CORPUSCULAR HGB CONC 31 g/dl (33.0-37.0); MONO # 0.9 (0.1-0.6); MONO % 8.3 % (1.7-9.3); PLATELET COUNT 190 K/mm3 (130-400); RED BLOOD COUNT 4.93 M/mm3 (4.20-5.60); REDCELL DISTRIBUTION WIDTH-CV 15.2 % (11.5-14.5)
[2020-10-11 23:39] LABS: COLLECTION METHOD CATHETER
[2020-10-11 23:43] LABS: ALANINE AMINOTRANSFERASE 19 U/L (4-49); ALBUMIN 3.8 gm/dL (3.5-5.0); ALKALINE PHOSPHATASE 130 U/L (50-136); ANION GAP 7 mmol/L (7-16); AST,SGOT 20 U/L (15-37); BILIRUBIN,TOTAL 0.4 mg/dL (0.0-1.0); BLOOD UREA NITROGEN 22 mg/dL (9-20); C-REACTIVE PROTEIN 2.3 mg/dL (0.0-0.9); CALCIUM 10.1 mg/dL (8.4-10.2); CARBON DIOXIDE 32 mmol/L (22-30); CHLORIDE 98 mmol/L (98-107); CREATININE, serum 1.24 (0.66-1.25); GLUCOSE 143 mg/dL (74-106); LIPASE 125 U/L (23-300); POTASSIUM 4.3 mmol/L (3.4-5.0); SODIUM 136 mmol/L (137-145)
[2020-10-11 23:45] LABS: PH 7 (5-8); SQUAMOUS EPITHELIAL None Seen /hpf; URINE APPEARANCE Clear; URINE BACTERIA None Seen /hpf; URINE BILIRUBIN Negative (NEGATIVE); URINE BLOOD Negative (NEGATIVE); URINE COLOR Straw; URINE GLUCOSE Negative (NEGATIVE); URINE KETONE Negative (NEGATIVE); URINE LEUKOCYTE ESTERASE Negative (NEGATIVE); URINE NITRATE Negative (NEGATIVE); URINE PROTEIN(semi-quant) Negative (NEGATIVE); URINE RBC 0-2 /hpf; URINE WBC 0-2 /hpf
[2020-10-11 23:51] LABS: TRICYCLIC ANTIDEPRESS URINE NEGATIVE
[2020-10-11 23:53] LABS: TROPONIN-I < 0.012 ng/mL (0.000-0.035)
[2020-10-12 00:42] LABS: ERYTHROCYTE SEDIMENTATION RATE 19 mm/hr (0-30)
[2020-10-12] MEDS ORDERED: PEPCID 20MG TAB20 MG PO (01:19)
[2020-10-12] MEDS ORDERED: ZOFRAN ODT4 MG PO (01:19)
[2020-10-12 02:37] VITALS: BP 140/65; PULSE 78
== END 2020-10-12 03:30 | disposition home or self-care (01) ==
LOC: COL.ER 22:40
PROVIDERS: Emergency Medicine
DX: R10.12 Left upper quadrant pain (principal); R10.32 Left lower quadrant pain; R11.2 Nausea with vomiting, unspecified; E11.9 Type 2 diabetes mellitus without complications; I10 Essential (primary) hypertension; E78.5 Hyperlipidemia, unspecified; E66.9 Obesity, unspecified; Z68.41 Body mass index [BMI] 40.0-44.9, adult; Z79.84 Long term (current) use of oral hypoglycemic drugs
CPT/HCPCS: J2270; J2405; J7030; Q9967

== ENCOUNTER → 2020-10-15 | Outpatient (CLI) | payer MEDICARE ==
[~2020-10-15] MED LIST changes: +PEPCID 20MG TAB20 MG PO; +ZOFRAN ODT4 MG PO
== END ==
LOC: ZLAB.STJ 13:44
DX: R80.9 Proteinuria, unspecified (principal)

== ENCOUNTER → 2020-10-17 | Outpatient (CLI) | payer MEDICARE | LOC: ZLAB.STJ 16:11 | DX: Z01.89 Encounter for other specified special examinations (principal) ==

== ENCOUNTER → 2020-11-10 | Outpatient (CLI) | payer MEDICARE ==
[2020-11-10 23:00] LABS: CALCIUM 10.3 mg/dL (8.4-10.2); CREATININE, serum 1.06 (0.66-1.25); POTASSIUM 4.3 mmol/L (3.4-5.0)
== END ==
LOC: ZCOL.LAB 22:25
PROVIDERS: Internal Medicine
DX: I25.10 Atherosclerotic heart disease of native coronary artery without angina pectoris (principal)

== ENCOUNTER → 2020-12-10 | Outpatient (CLI) | payer MEDICARE ==
[~2020-12-10] MED LIST changes: +COZAAR 50MG50 MG/TAB PO; +DECADRON6 MG PO; +NEURONTIN300 MG/CAP PO; +OZEMPIC0.25 MG/0. SQ; +SEROQUEL50 MG PO
[2020-12-10 20:26] LABS: CALCIUM 10.3 mg/dL (8.4-10.2); CREATININE, serum 1.18 (0.66-1.25); POTASSIUM 4.5 mmol/L (3.4-5.0)
== END ==
LOC: ZLAB.STJ 19:52
PROVIDERS: Internal Medicine
DX: Z01.89 Encounter for other specified special examinations (principal)

== ENCOUNTER → 2021-02-13 | Outpatient (REF) ==
[2021-02-13 17:09] LABS: BASO % 0.3 % (0.0-2.0); EOS # 0.8 (0.0-0.7); EOS % 6.3 % (0-4.0); GRAN # 8.7 (1.4-6.5); GRAN % 70.7 % (42.2-75.2); HEMATOCRIT 45.2 % (42.0-52.0); HEMOGLOBIN 13.9 g/dl (13.5-18.0); LYMPH # 1.9 (1.2-3.4); LYMPH % 15.3 % (20.0-51.0); MEAN CELL VOLUME 91 fl (80.0-100.0); MEAN CORPUSCULAR HEMOGLOBIN 28 pg (27.0-31.0); MEAN CORPUSCULAR HGB CONC 31 g/dl (33.0-37.0); MEAN PLATELET VOLUME 11.9 fl (7.4-10.4); MONO # 0.9 (0.1-0.6); MONO % 7.1 % (1.7-9.3); PLATELET COUNT 205 K/mm3 (130-400); RED BLOOD COUNT 4.97 M/mm3 (4.20-5.60); REDCELL DISTRIBUTION WIDTH-CV 15.7 % (11.5-14.5)
[2021-02-13 17:21] LABS: ALBUMIN 3.8 gm/dL (3.5-5.0); BILIRUBIN,TOTAL 0.1 mg/dL (0.0-1.0); CALCIUM 10.3 mg/dL (8.4-10.2); CREATININE, serum 1.09 (0.66-1.25); URIC ACID 6.3 mg/dL (3.5-8.5)
[2021-02-18 21:05] LABS: VITAMIN E 9.9 mg/L (())
[2021-02-19 10:58] LABS: A/G RATIO (PEP) 0.85 (())
== END ==
LOC: ZLAB.STJ 16:57
PROVIDERS: Internal Medicine
DX: E83.52 Hypercalcemia (principal); E11.9 Type 2 diabetes mellitus without complications; M10.9 Gout, unspecified

== ENCOUNTER 2021-03-04 14:38 | Outpatient (RCR) | payer MEDICARE ==
[~2021-03-04 14:38] MED LIST changes: -COZAAR 50MG50 MG/TAB PO; -DECADRON6 MG PO; -NEURONTIN300 MG/CAP PO; -OZEMPIC0.25 MG/0. SQ; -SEROQUEL50 MG PO
== END 2021-03-04 16:00 | disposition home or self-care (01) ==
LOC: WSPT 14:38
DX: R20.2 Paresthesia of skin (principal)

== ENCOUNTER → 2021-03-06 | Outpatient (CLI) | payer MEDICARE ==
[~2021-03-06] MED LIST changes: +COZAAR 50MG50 MG/TAB PO; +DECADRON6 MG PO; +NEURONTIN300 MG/CAP PO; +OZEMPIC0.25 MG/0. SQ; +SEROQUEL50 MG PO
[2021-03-06 16:22] LABS: BASO % 0.4 % (0.0-2.0); EOS # 0.6 (0.0-0.7); EOS % 6.1 % (0-4.0); GRAN % 67.2 % (42.2-75.2); HEMATOCRIT 40.8 % (42.0-52.0); HEMOGLOBIN 12.5 g/dl (13.5-18.0); LYMPH # 1.7 (1.2-3.4); LYMPH % 16.3 % (20.0-51.0); MEAN CELL VOLUME 91 fl (80.0-100.0); MEAN CORPUSCULAR HEMOGLOBIN 28 pg (27.0-31.0); MEAN CORPUSCULAR HGB CONC 31 g/dl (33.0-37.0); MEAN PLATELET VOLUME 12.8 fl (7.4-10.4); MONO % 9.6 % (1.7-9.3); PLATELET COUNT 189 K/mm3 (130-400); RED BLOOD COUNT 4.51 M/mm3 (4.20-5.60); REDCELL DISTRIBUTION WIDTH-CV 15.7 % (11.5-14.5)
[2021-03-06 16:28] LABS: ALBUMIN 3.5 gm/dL (3.5-5.0); BILIRUBIN,TOTAL 0.3 mg/dL (0.0-1.0); CALCIUM 10.2 mg/dL (8.4-10.2); CREATININE, serum 1.06 (0.66-1.25); POTASSIUM 4.3 mmol/L (3.4-5.0); TOTAL PROTEIN 6.8 gm/dL (6.4-8.2)
== END ==
LOC: ZLAB.STJ 14:19
PROVIDERS: Internal Medicine
DX: Z13.228 Encounter for screening for other metabolic disorders (principal); D64.9 Anemia, unspecified

== ENCOUNTER → 2021-03-12 | Outpatient (CLI) | payer MEDICARE | LOC: ZLAB.STJ 16:37 | DX: E11.9 Type 2 diabetes mellitus without complications (principal) ==

== ENCOUNTER → 2021-03-12 | Outpatient (REF) | LOC: ZLAB.STJ 17:34 | DX: E11.9 Type 2 diabetes mellitus without complications (principal) ==

== ENCOUNTER → 2021-03-23 | Outpatient (CLI) | payer MEDICARE ==
[2021-03-23 19:07] LABS: BASO % 0.3 % (0.0-2.0); EOS # 0.6 (0.0-0.7); EOS % 5.8 % (0-4.0); GRAN # 7.8 (1.4-6.5); GRAN % 71.2 % (42.2-75.2); HEMATOCRIT 42.1 % (42.0-52.0); HEMOGLOBIN 12.8 g/dl (13.5-18.0); LYMPH # 1.6 (1.2-3.4); MEAN CELL VOLUME 90 fl (80.0-100.0); MEAN CORPUSCULAR HEMOGLOBIN 27 pg (27.0-31.0); MEAN CORPUSCULAR HGB CONC 30 g/dl (33.0-37.0); MEAN PLATELET VOLUME 12.3 fl (7.4-10.4); MONO # 0.8 (0.1-0.6); MONO % 7.3 % (1.7-9.3); PLATELET COUNT 198 K/mm3 (130-400); RED BLOOD COUNT 4.68 M/mm3 (4.20-5.60); REDCELL DISTRIBUTION WIDTH-CV 15.7 % (11.5-14.5)
== END ==
LOC: ZLAB.STJ 16:19
PROVIDERS: Internal Medicine
DX: R68.89 Other general symptoms and signs (principal)

== ENCOUNTER 2021-04-18 05:08 | Inpatient (IN) | payer MEDICARE ==
[~2021-04-18] VITALS: Ht 185.4 cm; Wt 145.7 kg
[~2021-04-18 05:08] MED LIST changes: -COZAAR 50MG50 MG/TAB PO; -DECADRON6 MG PO; -NEURONTIN300 MG/CAP PO; -OZEMPIC0.25 MG/0. SQ; -SEROQUEL50 MG PO
[2021-04-18 05:41] LABS: BASO % 0.1 % (0.0-2.0); EOS % 0.1 % (0-4.0); GRAN # 7.5 (1.4-6.5); GRAN % 82.4 % (42.2-75.2); HEMATOCRIT 41.1 % (42.0-52.0); HEMOGLOBIN 12.7 g/dl (13.5-18.0); LYMPH # 1.1 (1.2-3.4); LYMPH % 11.6 % (20.0-51.0); MEAN CELL VOLUME 88 fl (80.0-100.0); MEAN CORPUSCULAR HEMOGLOBIN 27 pg (27.0-31.0); MEAN CORPUSCULAR HGB CONC 31 g/dl (33.0-37.0); MEAN PLATELET VOLUME 11.2 fl (7.4-10.4); MONO # 0.5 (0.1-0.6); MONO % 5.5 % (1.7-9.3); PLATELET COUNT 120 K/mm3 (130-400); RED BLOOD COUNT 4.67 M/mm3 (4.20-5.60); REDCELL DISTRIBUTION WIDTH-CV 15.8 % (11.5-14.5)
[2021-04-18 05:51] LABS: ALBUMIN 3.5 gm/dL (3.5-5.0); BILIRUBIN,TOTAL 0.5 mg/dL (0.0-1.0); CALCIUM 9.6 mg/dL (8.4-10.2); CREATININE, serum 1.19 (0.66-1.25); POTASSIUM 3.7 mmol/L (3.4-5.0); TOTAL PROTEIN 7.2 gm/dL (6.4-8.2)
[2021-04-18 06:03] LABS: TROPONIN-I 0.034 ng/mL (0.000-0.035)
[2021-04-18] MEDS ORDERED: OZEMPIC0.25 MG/0. SQ (06:31)
[2021-04-18] MEDS ORDERED: WELLBUTRIN XL150 MG PO (06:41)
[2021-04-18] MEDS ORDERED: COZAAR 50MG50 MG/TAB PO (06:42)
[2021-04-18] MEDS ORDERED: NEURONTIN300 MG/CAP PO (06:45)
[2021-04-18 07:07] LABS: COLLECTION METHOD CLEAN CATCH
[2021-04-18 07:16] LABS: MUCOUS Present /lpf; PH 5 (5-8); SQUAMOUS EPITHELIAL None Seen /hpf; URINE APPEARANCE Clear; URINE BACTERIA Rare /hpf; URINE BILIRUBIN Negative (NEGATIVE); URINE BLOOD 2+ (NEGATIVE); URINE COLOR Yellow; URINE GLUCOSE Negative (NEGATIVE); URINE KETONE Negative (NEGATIVE); URINE LEUKOCYTE ESTERASE Negative (NEGATIVE); URINE NITRATE Negative (NEGATIVE); URINE PROTEIN(semi-quant) 2+ (NEGATIVE); URINE RBC 0-2 /hpf
[2021-04-18 09:51] LABS: MAGNESIUM 1.4 mg/dL (1.6-2.3)
[2021-04-18 09:56] LABS: ARTERIAL BLD GAS O2 SATURATION 94.1 % (92-100); ARTERIAL BLOOD GAS BASE EXCESS -0.7 (-2-2); ARTERIAL BLOOD GAS HCO3 24.7 meq/L (22-26); ARTERIAL BLOOD GAS PCO2 43.5 mmHg (35-45); ARTERIAL BLOOD GAS PO2 72.1 mmHg (80-100); ARTERIAL BLOOD GAS pH 7.37 (7.35-7.45)
[2021-04-18 10:03] LABS: C-REACTIVE PROTEIN 16.9 mg/dL (0.0-0.9)
--- NOTE | 2021-04-18 12:00 | NUR ---
Pt admitted to medical floor rm 305 with Contact/droplet isolation in place. Pt awake and alert, partially oriented. Audible expiratory wheezing with wheezes to ausculation noted as well. O2 provided via NC at 5.5 L/min. No further needs reported. Call light in reach.
[2021-04-18 12:35] VITALS: BP 135/50; PULSE 82; TEMP 99
[2021-04-18 14:58] VITALS: BP 134/67; PULSE 75; TEMP 98.9
--- NOTE | 2021-04-18 18:30 | NUR ---
Dinner tray taken to pt and when pt sitting up to eat, he reports feeling the need to have a BM. Pt assisted to BSC with assist x 2, no BM occurs. Pt assisted back to bed and sat up to eat. O2 remains at 5.5 L/min via NC. Call light in reach. Bed alarm on.
[2021-04-18 20:25] VITALS: BP 152/62; PULSE 90; TEMP 98.8
--- NOTE | 2021-04-18 21:45 | NUR ---
Shift assessment completed. Patient laying in bed upon enter the room. Patient alert and oriented to self only. Patient currently on oxygen 5.5 L via NC. Breathing was labored. Audible inx/exp wheezing noted. Respiratory therapy in the room while giving patient medications. All scheduled meds given per DEC. Call light within reach. Will continue to monitor.
[2021-04-19 00:01] VITALS: BP 142/64; PULSE 88; TEMP 98.8
[2021-04-19 04:14] VITALS: BP 143/58; PULSE 88; TEMP 98.5
[2021-04-19 06:58] LABS: BASO % 0.1 % (0.0-2.0); GRAN # 12.9 (1.4-6.5); GRAN % 90.5 % (42.2-75.2); HEMATOCRIT 39.1 % (42.0-52.0); HEMOGLOBIN 11.8 g/dl (13.5-18.0); LYMPH # 0.6 (1.2-3.4); LYMPH % 4.5 % (20.0-51.0); MEAN CELL VOLUME 89 fl (80.0-100.0); MEAN CORPUSCULAR HEMOGLOBIN 27 pg (27.0-31.0); MEAN CORPUSCULAR HGB CONC 30 g/dl (33.0-37.0); MEAN PLATELET VOLUME 11.8 fl (7.4-10.4); MONO # 0.6 (0.1-0.6); MONO % 4.1 % (1.7-9.3); PLATELET COUNT 128 K/mm3 (130-400); RED BLOOD COUNT 4.41 M/mm3 (4.20-5.60); REDCELL DISTRIBUTION WIDTH-CV 15.7 % (11.5-14.5)
--- NOTE | 2021-04-19 07:00 | NUR ---
Report outside room from MILLICENT Astudillo. This nurse peeks in room, pt resting with eyes closed. Call light in reach. Bed alarm on.
[2021-04-19 07:04] LABS: INR 1.4 (0.8-3.0); PROTHROMBIN TIME 15.7 SECONDS (9.7-12.8)
[2021-04-19 08:13] VITALS: BP 145/87; PULSE 85; TEMP 98.2
--- NOTE | 2021-04-19 09:30 | NUR ---
Assessment complete. Pt sitting up in bed, alert and partially oriented, denies pain at this time. Saline lock IV to right AC without s/s of complications. O2 provided via NC at 5.5 L/min, breath sounds coarse to auscultation. No further needs reported. Call light in reach.
[2021-04-19 12:31] VITALS: BP 123/50; PULSE 64; TEMP 98.5
--- NOTE | 2021-04-19 14:10 | NUR ---
Ney spoke with DPOA-HC, Laz Venturazoila, brother-zo (ph# [phone]) to complete intake. Laz informed Ney that the pt is in a assisted living at [facility]. He uses a wheelchair and nurses help him bath, dress etc for his ADLs. The pcp is Danita Leyva. The pt does have another DPAO-HC as well, Horace. DPOA-HC is in the chart to review. Horace handles most of the medical questions. No other needs stated at this time. Sw to await further recommendations and follow up as needed. D/c: [facility] assisted living.
[2021-04-19 16:38] VITALS: BP 121/51; PULSE 58; TEMP 98.5
--- NOTE | 2021-04-19 19:30 | NUR ---
Report to MILLICENT Zamudio. Pt moved from rm 305 to rm 359 d/t less neighboring pts in this room. Pt has been continuously yelling during the day to use the restroom or for food even after help has been provided. This nurse and COOK MORNING have attempted to show pt how to use the call light, but pt states "I know how to use that thing." However, pt does not use the call light during the shift.
[2021-04-19 20:40] VITALS: BP 133/74; PULSE 76; TEMP 97.5
[2021-04-20] VITALS (7 sets, daily range): BP systolic 98–148; BP diastolic 56–101; PULSE 63–72; TEMP 97.6–97.9
--- NOTE | 2021-04-20 00:32 | NUR ---
PATIENT IS ALERT AND CONFUSED. SOB ON 3L NC, LUNG SOUNDS RHONCHI. INCONTINENT OF URINE CHICHO CARE PROVIDED. CHICHO AREA REDDENED MICRONIZOLE CREAM APPLIED. PATIENT BC + GRAM COCCI, HOSPITALIST FREDA MIRANDA MADE AWARE. WILL CONTINUE TO MONITOR.
[2021-04-20 07:24] LABS: HEMATOCRIT 41.7 % (42.0-52.0); HEMOGLOBIN 12.7 g/dl (13.5-18.0); MEAN CELL VOLUME 88 fl (80.0-100.0); MEAN CORPUSCULAR HEMOGLOBIN 27 pg (27.0-31.0); MEAN CORPUSCULAR HGB CONC 31 g/dl (33.0-37.0); MEAN PLATELET VOLUME 12.1 fl (7.4-10.4); PLATELET COUNT 152 K/mm3 (130-400); RED BLOOD COUNT 4.72 M/mm3 (4.20-5.60); REDCELL DISTRIBUTION WIDTH-CV 15.8 % (11.5-14.5)
[2021-04-20 08:03] LABS: BAND 11 % (0-10); LYMPHOCYTE 8 % (20.0-51.0); NEUTROPHILS 76 % (42.0-75.2); PLATELET ESTIMATE NORMAL (NORMAL)
--- NOTE | 2021-04-20 11:21 | NUR ---
This RN entered the room and the patient was attempting to take his mits off. Mits were placed overnight to keep the patient from pulling his oxygen off. This RN assisted the patient with eating and he only ate a small amount. Patient is requesting a hamburger. Patient is alert and pleasant, but not oriented. This RN completed the shift assessment, administered medications, and changed the dressing on his IV. This RN and the PCT got the patient changed as he was incontinent of urine.
--- NOTE | 2021-04-20 11:39 | NUR ---
The patient is COVID positive. ADAM contacted and faxed updates to Reymundo at [facility]. Reymundo reports that the patient is in their long-term care and that he tested postive there. He reports that he does not think that they will have to wait on taking him back, when ready. *Discharge plan: [facility] long-term care*
--- NOTE | 2021-04-20 17:13 | NUR ---
Patient doing well. Remains on 5L of oxygen via NC. Patient has not been yelling out as much. Patient seems pleasantly confused. This RN and the PCT changed the patient and provided andrea care. This RN hung remdesivir and got the patient set-up with his room tray.
[2021-04-21 03:27] VITALS: BP 142/66; PULSE 67; TEMP 97.5
--- NOTE | 2021-04-21 05:42 | NUR ---
PT REMAINED AWAKE THROUGH OUT ENTIRE NIGHT. PT WAS VERY MUCH CONFUSED AND DISORIENTED, AT APPROXIMATELY 0230 HOURS THE PT GOT OUT OF BED AND ATTEMPTED TO AMBULATE, AT THAT TIME THE NURSE AND AIDE ARRIVED SIMULTANEOUSLY AND WERE ABLE TO HELP THE PT BACK TO BED. PT WAS CLEAN, DRIED AND REPOSITIONED. AT THAT TIME THE NURSE PLACED THE VIDEO MONITOR IN PT'S ROOM AND NURSES DESK TO CONTINOUSLY MONITOR PT. AT 0400 PT PULLED OUT IV, NURSE WAS ABLE TO RESTART A NEW ONE. PT CURRENTLY EXPRESSES WORD SALAD WITH SOME COMPREHENSIBLE REQUESTS/EXPRESSIONS. ANTIBIOTICS ADMINISTERED ORDERED. PT EXPRESSES NO ADDITIONAL NEEDS AT THIS TIME. CALL LIGHT WITHIN REACH. NURSE WILL CONTINUE TO F/U.
[2021-04-21 08:23] VITALS: BP 153/56; PULSE 65; TEMP 97.4
[2021-04-21 08:56] VITALS: TEMP 98.9
[2021-04-21 11:28] VITALS: BP 131/59; PULSE 75; TEMP 98.7
[2021-04-21 15:15] LABS: BASO % 0.1 % (0.0-2.0); EOS % 0.1 % (0-4.0); GRAN % 89.4 % (42.2-75.2); HEMOGLOBIN 13.5 g/dl (13.5-18.0); LYMPH # 0.5 (1.2-3.4); LYMPH % 4.3 % (20.0-51.0); MEAN CELL VOLUME 90 fl (80.0-100.0); MEAN CORPUSCULAR HEMOGLOBIN 27 pg (27.0-31.0); MEAN CORPUSCULAR HGB CONC 30 g/dl (33.0-37.0); MEAN PLATELET VOLUME 11.6 fl (7.4-10.4); MONO # 0.7 (0.1-0.6); MONO % 5.5 % (1.7-9.3); PLATELET COUNT 209 K/mm3 (130-400); RED BLOOD COUNT 5.01 M/mm3 (4.20-5.60); REDCELL DISTRIBUTION WIDTH-CV 15.9 % (11.5-14.5)
[2021-04-21 15:31] LABS: CALCIUM 10.4 mg/dL (8.4-10.2); CREATININE, serum 1.47 (0.66-1.25); POTASSIUM 4.1 mmol/L (3.4-5.0)
--- NOTE | 2021-04-21 15:59 | NUR ---
ADAM faxed updates to Reymundo at [email or web address].
[2021-04-21 17:31] VITALS: BP 141/99; PULSE 68; TEMP 97.5
[2021-04-21 19:30] VITALS: BP 163/66; PULSE 75; TEMP 97.8
[2021-04-22 04:23] VITALS: BP 150/75; PULSE 75; TEMP 97.9
--- NOTE | 2021-04-22 06:17 | NUR ---
PT HAD MUCH INTERRUPTED SLEEP THROUGH OUT NIGHT WITH CONSTANT MOVING AND CONVERSATION WITH HIMSELF. ALL MEDICATIONS ADMINISTERED ORDERED. PT REMAINS A/O TO SELF BUT REMAINS DISORIENTED, VSS, 02 5L HIGH FLOW NC SATURATING OVER 90 PERCENT, PT REMAINED INCONTINENT THROUGH THE NIGHT. PT HAS BEEN CLEAN, DRIED AND REPOSITIONED Q2 OR NEEDED. PT IS CURRENTLY WEARING MITS, TOLERATING WELL. VIDEO MONITOR CONTINUES TO BE AT NURSES STATION TO CONTINOUSLY MONITOR PT. PT EXPRESSES NO ADDITIONAL NEEDS AT THIS TIME. BED LOW, BED ALARM ON. NURSE WILL CONTINUE TO MONITOR.
--- NOTE | 2021-04-22 06:30 | NUR ---
PT LAYING IN BED MOANING AND TALKING TO HIMSELF. HE DENIES ANY CURRENT NEEDS. WILL RETURN TO ASSESS. NO OTHER CONCERNS AT THIS TIME.
[2021-04-22 06:58] LABS: BASO % 0.1 % (0.0-2.0); GRAN # 8.2 (1.4-6.5); GRAN % 86.3 % (42.2-75.2); HEMATOCRIT 43.4 % (42.0-52.0); HEMOGLOBIN 13.1 g/dl (13.5-18.0); LYMPH # 0.6 (1.2-3.4); LYMPH % 6.7 % (20.0-51.0); MEAN CELL VOLUME 90 fl (80.0-100.0); MEAN CORPUSCULAR HEMOGLOBIN 27 pg (27.0-31.0); MEAN CORPUSCULAR HGB CONC 30 g/dl (33.0-37.0); MEAN PLATELET VOLUME 11.5 fl (7.4-10.4); MONO # 0.6 (0.1-0.6); MONO % 6.4 % (1.7-9.3); PLATELET COUNT 219 K/mm3 (130-400); RED BLOOD COUNT 4.84 M/mm3 (4.20-5.60); REDCELL DISTRIBUTION WIDTH-CV 15.9 % (11.5-14.5)
[2021-04-22 07:01] LABS: CALCIUM 10.5 mg/dL (8.4-10.2); CREATININE, serum 1.49 (0.66-1.25); MAGNESIUM 2.1 mg/dL (1.6-2.3); POTASSIUM 4.3 mmol/L (3.4-5.0)
[2021-04-22 08:00] VITALS: BP 141/87; PULSE 56; TEMP 97.8
[2021-04-22 12:36] VITALS: BP 167/86; PULSE 66; TEMP 97.8
--- NOTE | 2021-04-22 14:11 | NUR ---
I have spoken on the phone with Miguel Olson and with Horace Olson about the plan to return Aayush to [facility] tomorrow so that he can be in a more familiar environment to hopefully allow him to be more comfortable, taking his meds, and eating and drinking. He is currently on 5.5L/NC of . Certainly discharge medications will include meds for his breathing, as well as his usual meds if he will take them. Family reports that his , Leigha, who is deaf, and his daughter, Concepción, special needs, all live at [facility]. I did discuss his code status with both brothers and also consideration of comfort care/hospice. They will further discuss with the third brother and will let us know their decision. They are comfortable with him returning to [facility]. This conversation was shared with Dr Hernández.
--- NOTE | 2021-04-22 15:32 | NUR ---
Recieved call from eR[facility] reporting that they can take Aayush back tomorrow but that he had recieved a call from BLAYNE Nesbitt that did not want his brother coming back as a DNR or on comfort care. I have heard no more from any of the three [id number] at this point.
[2021-04-22 15:55] VITALS: BP 147/65; PULSE 92; TEMP 97.2
--- NOTE | 2021-04-22 16:11 | NUR ---
The hospitalist notified ADAM that the patient will be ready to d/c tomorrow and that he ordered a palliative care consult. ADAM notified and faxed updates to Reymundo at [facility].
[2021-04-22 21:51] VITALS: BP 186/95; PULSE 65; TEMP 97.9
[2021-04-22 23:58] VITALS: BP 159/64; PULSE 67; TEMP 98
[2021-04-23 06:01] VITALS: BP 146/63; PULSE 73; TEMP 97.7
[2021-04-23 06:46] LABS: CALCIUM 10.3 mg/dL (8.4-10.2); CREATININE, serum 1.79 (0.66-1.25); MAGNESIUM 2.3 mg/dL (1.6-2.3); POTASSIUM 4.3 mmol/L (3.4-5.0)
[2021-04-23 06:48] LABS: BASO % 0.2 % (0.0-2.0); EOS % 0.3 % (0-4.0); GRAN # 8.1 (1.4-6.5); GRAN % 83.3 % (42.2-75.2); HEMATOCRIT 48.7 % (42.0-52.0); HEMOGLOBIN 14.2 g/dl (13.5-18.0); LYMPH # 0.8 (1.2-3.4); LYMPH % 8.2 % (20.0-51.0); MEAN CELL VOLUME 93 fl (80.0-100.0); MEAN CORPUSCULAR HEMOGLOBIN 27 pg (27.0-31.0); MEAN CORPUSCULAR HGB CONC 29 g/dl (33.0-37.0); MEAN PLATELET VOLUME 11.8 fl (7.4-10.4); MONO # 0.7 (0.1-0.6); MONO % 7.6 % (1.7-9.3); PLATELET COUNT 191 K/mm3 (130-400); RED BLOOD COUNT 5.23 M/mm3 (4.20-5.60); REDCELL DISTRIBUTION WIDTH-CV 16.1 % (11.5-14.5)
[2021-04-23 08:26] VITALS: BP 175/75; PULSE 59; TEMP 97.9
--- NOTE | 2021-04-23 08:46 | NUR ---
Phone call recieved from [facility], Horace Olson, that the family had talked and they will not change code status or goals of care until he has returned to the half-way for several days.
--- NOTE | 2021-04-23 09:47 | NUR ---
ATTEMPTED TO GIVE PT SEROQUEL, PT WOULD NOT SWALLOW BUT PILLS DISOLVING ON TONGUE. PT TAKING OFF OXYGEN FREQENTLY AND NOT ALLOWING STAFF TO PUT IT BACK ON. ONCE OXYGEN PLACED BACK ON PT, PT TURNED UP TO 5L NC DUE TO INC WOB AND LOW OXYGENATION ON PULSE OX. PT REFUSING TO EAT OR DRINK, LOVENOX SHOT GIVEN BUT ALL OTHER MEDS HELD DUE TO PT NOT TAKING THEM. PT PULLING AT IV SITE, IV SITE WRAPPED WITH SUSAN WRAP. ASSESSMENT PERFORMED, BLE DISCOLORED AND COOL TO TOUCH BUT YOUSUF IN <3SEC.
[2021-04-23 10:50] VITALS: BP 172/115
--- NOTE | 2021-04-23 11:09 | NUR ---
TECH INFORMED ME OF ELEVATED PRESSURE ON PT. ATTEMPTED TO CALL PROVIDER BUT NO ANSWER.
[2021-04-23] MEDS ORDERED: DECADRON6 MG PO (11:32)
[2021-04-23] MEDS ORDERED: SEROQUEL50 MG PO ×2 (11:36)
[2021-04-23 11:51] VITALS: BP 172/115; PULSE 67; TEMP 97.7
--- NOTE | 2021-04-23 12:56 | NUR ---
The patient is to discharge today, 04/23, back to [facility] for a skilled stay. Transportation was scheduled at 1430, via [facility]. ADAM informed the community reinvestment act officer and the patient's DPOA-HC, Miguel, of the time. They were both agreeable to the time. ADAM also read the IM form outloud to Miguel over the phone. Miguel verbalized understanding and gave SW approval to sign the form on his behalf. No additional needs at this time.
--- NOTE | 2021-04-23 14:16 | NUR ---
ATTEMPTED TO CALL REPORT, FACILITY DID NOT ANSWER
--- NOTE | 2021-04-23 14:55 | NUR ---
PT ESCORTED OUT VIA WHEELCHAIR, SHADIA LIFT USED TO PLACE PT IN WHEELCHAIR, PAPERWORK TAKEN WITH PT.
--- NOTE | 2021-04-23 15:12 | NUR ---
3 OTHER CALLS HAVE BEEN ATTEMPTED TO LEAVE REPORT AND CALL BACK NUMBER LEFT.
== END 2021-04-23 15:00 | DRG 177 ==
LOC: COL.ER 05:08 → MEDICAL 06:32 → ICU 06:32 → MEDICAL 06:33
PROVIDERS: Emergency Medicine; Internal Medicine; Student in an Organized Health Care Education/Training Program
PROC: XW033E5 Introduction of Remdesivir Anti-infective into Peripheral Vein, Percutaneous Approach, New Technology Group 5 (ICD-10-PCS; principal; 2021-04-18)
DX: U07.1 COVID-19 (principal); J12.82 Pneumonia due to coronavirus disease 2019; J96.01 Acute respiratory failure with hypoxia; I13.0 Hypertensive heart and chronic kidney disease with heart failure and stage 1 through stage 4 chronic kidney disease, or unspecified chronic kidney disease; Z68.44 Body mass index [BMI] 60.0-69.9, adult; I50.32 Chronic diastolic (congestive) heart failure; F05 Delirium due to known physiological condition; N17.9 Acute kidney failure, unspecified; E78.5 Hyperlipidemia, unspecified; I25.10 Atherosclerotic heart disease of native coronary artery without angina pectoris; N18.9 Chronic kidney disease, unspecified; I25.2 Old myocardial infarction; Z95.5 Presence of coronary angioplasty implant and graft; E11.22 Type 2 diabetes mellitus with diabetic chronic kidney disease; E11.51 Type 2 diabetes mellitus with diabetic peripheral angiopathy without gangrene; E66.01 Morbid (severe) obesity due to excess calories; F03.90 Unspecified dementia, unspecified severity, without behavioral disturbance, psychotic disturbance, mood disturbance, and anxiety; B37.2 Candidiasis of skin and nail; I48.91 Unspecified atrial fibrillation; K21.9 Gastro-esophageal reflux disease without esophagitis; N40.0 Benign prostatic hyperplasia without lower urinary tract symptoms; F01.50 Vascular dementia, unspecified severity, without behavioral disturbance, psychotic disturbance, mood disturbance, and anxiety; M10.9 Gout, unspecified; Z79.84 Long term (current) use of oral hypoglycemic drugs
CPT/HCPCS: 99223-AI; 99232-AI; 99233-AI; 99239; J0360; J0696; J1100; J1650; J1815; J2270; J2405; J2543; J3370; J7030; J7040; J7050; J8540

== ENCOUNTER 2021-04-23 23:46 | Observation (INO) | payer MEDICARE ==
[~2021-04-23] VITALS: Ht 182.9 cm; Wt 165.4 kg
[~2021-04-23 23:46] MED LIST changes: +COZAAR 50MG50 MG/TAB PO; +DECADRON6 MG PO; +NEURONTIN300 MG/CAP PO; +OZEMPIC0.25 MG/0. SQ; +SEROQUEL50 MG PO
[2021-04-24] VITALS (8 sets, daily range): BP systolic 137–196; BP diastolic 49–92; PULSE 85–108; TEMP 97.8–98.9
[2021-04-24 00:21] LABS: EOS # 0.1 (0.0-0.7); GRAN # 9.3 (1.4-6.5); GRAN % 83.8 % (42.2-75.2); HEMATOCRIT 51.2 % (42.0-52.0); HEMOGLOBIN 15.2 g/dl (13.5-18.0); LYMPH # 0.7 (1.2-3.4); MEAN CELL VOLUME 90 fl (80.0-100.0); MEAN CORPUSCULAR HEMOGLOBIN 27 pg (27.0-31.0); MEAN CORPUSCULAR HGB CONC 30 g/dl (33.0-37.0); MONO % 8.7 % (1.7-9.3); PLATELET COUNT 256 K/mm3 (130-400); RED BLOOD COUNT 5.68 M/mm3 (4.20-5.60); REDCELL DISTRIBUTION WIDTH-CV 16.3 % (11.5-14.5)
[2021-04-24 00:37] LABS: ALANINE AMINOTRANSFERASE 31 U/L (4-49); ALBUMIN 3.1 gm/dL (3.5-5.0); ALKALINE PHOSPHATASE 70 U/L (50-136); ANION GAP 8 mmol/L (7-16); AST,SGOT 24 U/L (15-37); BILIRUBIN,TOTAL 0.6 mg/dL (0.0-1.0); BLOOD UREA NITROGEN 72 mg/dL (9-20); C-REACTIVE PROTEIN 4.9 mg/dL (0.0-0.9); CALCIUM 10.5 mg/dL (8.4-10.2); CARBON DIOXIDE 28 mmol/L (22-30); CHLORIDE 113 mmol/L (98-107); CREATININE, serum 2.11 (0.66-1.25); GLUCOSE 205 mg/dL (74-106); LIPASE 1894 U/L (23-300); POTASSIUM 4.5 mmol/L (3.4-5.0); SODIUM 148 mmol/L (137-145); TOTAL PROTEIN 6.7 gm/dL (6.4-8.2)
[2021-04-24 00:44] LABS: COLLECTION METHOD CATHETER
[2021-04-24 00:45] LABS: TROPONIN-I < 0.012 ng/mL (0.000-0.035)
[2021-04-24 00:57] LABS: ARTERIAL BLD GAS O2 SATURATION 96.2 % (92-100); ARTERIAL BLD GAS TCO2 CT 27.4; ARTERIAL BLOOD GAS BASE EXCESS -0.3 (-2-2); ARTERIAL BLOOD GAS HCO3 25.9 meq/L (22-26); ARTERIAL BLOOD GAS PCO2 48.3 mmHg (35-45); ARTERIAL BLOOD GAS PO2 85.5 mmHg (80-100); ARTERIAL BLOOD GAS pH 7.35 (7.35-7.45)
[2021-04-24 00:59] LABS: PH 5 (5-8); SQUAMOUS EPITHELIAL None Seen /hpf; URINE APPEARANCE Clear; URINE BACTERIA None Seen /hpf; URINE BILIRUBIN Negative (NEGATIVE); URINE BLOOD 3+ (NEGATIVE); URINE COLOR Yellow; URINE GLUCOSE Negative (NEGATIVE); URINE KETONE Negative (NEGATIVE); URINE LEUKOCYTE ESTERASE Negative (NEGATIVE); URINE NITRATE Negative (NEGATIVE); URINE PROTEIN(semi-quant) Negative (NEGATIVE); URINE RBC 20-50 /hpf; URINE UROBILINOGEN Negative (NEGATIVE)
[2021-04-24 04:30] LABS: INR 1.3 (0.8-3.0); PROTHROMBIN TIME 14.1 SECONDS (9.7-12.8)
[2021-04-24 04:32] LABS: PARTIAL THROMBOPLASTIN TIME 17.8 SECONDS (26.0-37.0)
[2021-04-24 04:35] LABS: CALCIUM 9.8 mg/dL (8.4-10.2); CREATININE, serum 1.89 (0.66-1.25); MAGNESIUM 2.3 mg/dL (1.6-2.3); PHOSPHOROUS 5.6 mg/dL (2.5-4.5); POTASSIUM 4.7 mmol/L (3.4-5.0)
[2021-04-24 04:36] LABS: LACTATE DEHYDROGENASE 768 U/L (313-618); LIPASE 1255 U/L (23-300)
--- NOTE | 2021-04-24 05:30 | NUR ---
ADMIT TO FLOOR AT 05AM. PT IS 2 POINT SOFT WRIST RESTRAINTS AND NOT AWAKE OR ALERT, SNORING. VITALS OBTAINED. IV FLUIDS RUNNING ALONG W NS GOING PER ORDER. BED IN LOW POSITION. CIRCULATION CHECKED AND IS WNL. OXYMASK AT 8 LITERS. UNABLE TO OBTAIN HOME MED LAST DOSE INTAKE, WILL PASS ON TO DAY SHIFT. BED IN LOWEST POSTION. ROOM BEING MONITORED AT ALL TIMES FROM NURSE STATION.
--- NOTE | 2021-04-24 06:11 | NUR ---
ID- DR OLIVA NOTIFIED OF CONSULT. DR CAICEDO NOTIFED BUT IS NOT WINDOWS MOBILE DEVELOPER. WILL PASS ON TO DAY SHIFT FOR PULMONARY CONSULT. SOFT WRIST RESTRAINT CHECK, GOOD CIRCULATION. PT REMAINS SEDATED.
--- NOTE | 2021-04-24 08:00 | NUR ---
Patient laying in bed, moaning in bed. Not alert, responds to touch, not verbal commmand. VSS, BP hypertensive, doctor aware. Patient NPO. IV CDI, fluids infusing. Patient in 2 point soft restrints, restraints taken off and the patient repositioned in bed. Restraints put back on. Gilmore dependent drainage, intact. Droplet/contact precautions in place. No further needs expressed from the patient. Call light within.
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
--- NOTE | 2021-04-24 20:43 | NUR ---
Patient is unresponsive, react to painful sitimuli. He is on monitor and no soft restrain at this time. He is drooling with his saliva. Suction ion implant machine operator and used, and scopolamine patched ordered. Oral meds are hold for patient is NPO and unable swallow. He does not look good. Repositioned the patient and bed alarm is on. Continue to monitotr.
[2021-04-25] VITALS (377 sets, daily range): BP systolic 104–110; BP diastolic 38–47; PULSE 90–97; TEMP 97.5–97.7; O2SAT 52–98
--- NOTE | 2021-04-25 03:33 | NUR ---
Patient sound miserable this morning. He sounds like he is drowning. RN called Jayne and got the order of Lasix IVP 20mg. IVF at 75ml was DC as well.Suctioned initiated. Continue to monitor.
[2021-04-25 03:40] LABS: HEMATOCRIT 47.6 % (42.0-52.0); HEMOGLOBIN 13.3 g/dl (13.5-18.0); MEAN CORPUSCULAR HEMOGLOBIN 27 pg (27.0-31.0); MEAN CORPUSCULAR HGB CONC 28 g/dl (33.0-37.0); MEAN PLATELET VOLUME 11.1 fl (7.4-10.4); PLATELET COUNT 304 K/mm3 (130-400); RED BLOOD COUNT 4.89 M/mm3 (4.20-5.60); REDCELL DISTRIBUTION WIDTH-CV 16.6 % (11.5-14.5)
[2021-04-25 03:49] LABS: MEAN CELL VOLUME 97 fl (80.0-100.0)
[2021-04-25 03:50] LABS: CALCIUM 10.3 mg/dL (8.4-10.2); CREATININE, serum 1.5 (0.66-1.25); POTASSIUM 5.5 mmol/L (3.4-5.0)
[2021-04-25 04:05] LABS: ANISOCYTOSIS 1+; BAND 1 % (0-10); LYMPHOCYTE 6 % (20.0-51.0); MYELOCYTE 1 % (0-0); NEUTROPHILS 82 % (42.0-75.2); PLATELET ESTIMATE NORMAL (NORMAL); POIKILOCYTOSIS 1+
--- NOTE | 2021-04-25 04:55 | NUR ---
Pt arrived to ICU 3 with assist of 2 nurses. Pt unresponsive at this time. attached to monitoring. Called RT for Bipap. See assessment documentation.
--- NOTE | 2021-04-25 05:15 | NUR ---
Bipap in place. SPO2 improves to 90%
[2021-04-25 05:19] LABS: ARTERIAL BLD GAS O2 SATURATION 93.4 % (92-100); ARTERIAL BLD GAS TCO2 CT 43.9; ARTERIAL BLOOD GAS BASE EXCESS 2.4 (-2-2); ARTERIAL BLOOD GAS PO2 85.2 mmHg (80-100)
[2021-04-25 05:20] LABS: ARTERIAL BLOOD GAS PCO2 160.7 mmHg (35-45)
--- NOTE | 2021-04-25 06:50 | NUR ---
CONTINUING TO ATTEMPT TO CONTACT FAMILY TO NOTIFY OF ARRIVAL TO ICU AND CHANGE IN CONDITION. UNABLE TO REACH FAMLIY AT THIS TIME. LEFT MESSAGE FOR YURIDIA MONTAGUE TO CALL ME BACK. UNABLE TO REACH ANYONE AT THE [phone] PHONE NUMBER
--- NOTE | 2021-04-25 11:57 | NUR ---
Per [employer] [facility]: pt is not a canidate for organ or tissue donation. ID: [id number]
--- NOTE | 2021-04-25 14:13 | NUR ---
[facility] notified, referral number [id number], patient is not a candidate. [facility]
--- NOTE | 2021-04-25 14:58 | NUR ---
Pt picked up by home. No belongings with pt
== END 2021-04-25 14:58 | disposition expired ==
LOC: COL.ER 23:46 → MEDICAL 04-24 03:06 → ICU 04-25 04:26
PROVIDERS: Emergency Medicine; Nurse Practitioner Family; Student in an Organized Health Care Education/Training Program; ADMIT Internal Medicine
DX: J96.01 Acute respiratory failure with hypoxia (principal); J12.82 Pneumonia due to coronavirus disease 2019; U07.1 COVID-19; R41.0 Disorientation, unspecified; G93.41 Metabolic encephalopathy; I25.10 Atherosclerotic heart disease of native coronary artery without angina pectoris; I13.10 Hypertensive heart and chronic kidney disease without heart failure, with stage 1 through stage 4 chronic kidney disease, or unspecified chronic kidney disease; N18.9 Chronic kidney disease, unspecified; E83.52 Hypercalcemia; K85.90 Acute pancreatitis without necrosis or infection, unspecified; E11.22 Type 2 diabetes mellitus with diabetic chronic kidney disease; E66.01 Morbid (severe) obesity due to excess calories; B37.89 Other sites of candidiasis; F03.90 Unspecified dementia, unspecified severity, without behavioral disturbance, psychotic disturbance, mood disturbance, and anxiety; Z68.43 Body mass index [BMI] 50.0-59.9, adult; Z79.82 Long term (current) use of aspirin; Z79.899 Other long term (current) drug therapy
CPT/HCPCS: G0378; J0456; J0696; J1100; J1644; J1940; J2060; J2270; J2543; J3370; J7030; J7050